=== PATIENT | female | born 1970 | race Caucasian/White ===

== ENCOUNTER 2023-09-01 15:37 | Emergency (ER) | payer OTHER ==
[~2023-09-01] VITALS: Ht 152.4 cm; Wt 86.2 kg
[2023-09-01 15:52] VITALS: BP 112/52; PULSE 131; RESP 18; TEMP 100; O2SAT 97
[2023-09-01] MEDS: NACL 0.9% 1,000 ML IV SCH (16:45)
[2023-09-01] MEDS: ONDANSETRON 4 MG/2 ML VIAL IVP ONE (16:45)
[2023-09-01 16:50] LABS: BASOPHILS % (AUTO) 0.1 % (0.0-2.0); EOSINOPHILS % (AUTO) 0.1 % (0.0-4.0); HEMATOCRIT 36.5 % (36-48); HEMOGLOBIN 12.2 g/dL (12.0-16.0); LYMPHOCYTES # (AUTO) 0.4 K/uL (2.5-16.5); LYMPHOCYTES % (AUTO) 10.8 % (20.5-51.1); MEAN CORPUSCULAR HEMOGLOBIN 29 pg (27-31); MEAN CORPUSCULAR HGB CONC 34 g/dL (33-37); MONOCYTES % (AUTO) 0.9 % (1.7-9.3); NEUTROPHILS # (AUTO) 3.3 K/uL (1.8-7.7); NEUTROPHILS % (AUTO) 88.1 % (42.2-75.2); PLATELET COUNT (AUTO) 145 K/uL (140-450); RED BLOOD CELL COUNT(AUTO) 4.25 MIL/uL (4.20-5.40); RED CELL DISTRIBUTION WIDTH 14.7 % (11.6-13.7); WHITE BLOOD COUNT (AUTO) 3.8 K/uL (4.8-10.8)
[2023-09-01 17:01] LABS: ANION GAP 18.7 (8-16); CALCIUM 9.7 mg/dL (8.5-10.1); CARBON DIOXIDE 22.5 mmol/L (21-32); POTASSIUM 4.2 mmol/L (3.5-5.1)
[2023-09-01 17:02] LABS: BILIRUBIN,URINE NEGATIVE (NEGATIVE); BLOOD, URINE 3+ (NEGATIVE); COLOR,URINE YELLOW (YELLOW); LEUKOCYTE ESTERASE ,URINE 1+ (NEGATIVE); NITRITE, URINE POSITIVE (NEGATIVE); PROTEIN,URINE 2+ (NEGATIVE); UGLUCOSE 3+ (NEGATIVE)
[2023-09-01 17:04] LABS: APPEARANCE,URINE SLIGHTLY CLOUDY (CLEAR)
[2023-09-01 17:06] LABS: BACTERIA,URINE 1+ /HPF (None Seen); MUCUS,URINE None Seen /LPF (None Seen); SQUAMOUS EPITHELIAL CELL,UR 0-3 (FEW) /LPF (0-3 (FEW)); WBC,URINE 0-5 /HPF (0-5)
[2023-09-01 17:08] LABS: FLU A ANTIGEN negative (NEGATIVE); FLU B ANTIGEN negative (NEGATIVE)
[2023-09-01 17:13] LABS: ALBUMIN 3.5 g/dL (3.4-5.0); BILIRUBIN,DIRECT 0.5 mg/dL (0.0-0.3); TOTAL BILIRUBIN 1.3 mg/dL (0.0-1.0); TOTAL PROTEIN, SERUM 7.8 g/dL (6.4-8.2)
[2023-09-01] MEDS: NACL 0.9% 1,000 ML IV ONE (17:40)
[2023-09-01] MEDS ORDERED: CIPR500T4 PO (18:16)
[2023-09-01] MEDS ORDERED: ONDA8TAB87 PO (18:16)
[2023-09-01] MEDS ORDERED: IBUP-2213 PO (18:16)
[2023-09-01 18:30] VITALS: BP 113/60; PULSE 100; RESP 22; TEMP 98.5; O2SAT 93
== END 2023-09-01 18:30 | disposition home or self-care (01) ==
LOC: MED 15:37
DX: N39.0 Urinary tract infection, site not specified (principal); Z20.822 Contact with and (suspected) exposure to COVID-19; E11.9 Type 2 diabetes mellitus without complications; I10 Essential (primary) hypertension; Z86.73 Personal history of transient ischemic attack (TIA), and cerebral infarction without residual deficits; Z90.49 Acquired absence of other specified parts of digestive tract
CPT/HCPCS: 36415; 80048; 80076; 81001; 81025; 83690; 85025; 87086; 87186; 87426; 87804; 96361; 96374; 99283; J2405; J7030

== ENCOUNTER 2023-09-08 00:15 | Inpatient (IN) | payer OTHER ==
[~2023-09-08] VITALS: Ht 152.4 cm; Wt 86.2 kg
[~2023-09-08 00:15] MED LIST: CIPR500T4 PO; IBUP-2213 PO; ONDA8TAB87 PO
[2023-09-08 00:33] VITALS: BP 98/45; PULSE 76; RESP 16; TEMP 96.6; O2SAT 98
[2023-09-08] MEDS ORDERED: DEXTROSE 50% 50 ML SYR IVP ONE (00:46)
[2023-09-08] MEDS: DEXTROSE 50% 50 ML SYR IVP ONE (01:00)
[2023-09-08 01:13] LABS: BASOPHILS % (AUTO) 0.1 % (0.0-2.0); EOSINOPHILS % (AUTO) 0.2 % (0.0-4.0); HEMATOCRIT 37.2 % (36-48); HEMOGLOBIN 12.2 g/dL (12.0-16.0); LYMPHOCYTES # (AUTO) 1.6 K/uL (2.5-16.5); LYMPHOCYTES % (AUTO) 5.9 % (20.5-51.1); MEAN CORPUSCULAR HEMOGLOBIN 28 pg (27-31); MEAN CORPUSCULAR HGB CONC 33 g/dL (33-37); MEAN CORPUSCULAR VOLUME 86.7 fL (80-94); MONOCYTES # (AUTO) 0.9 K/uL (0.8-1.0); MONOCYTES % (AUTO) 3.3 % (1.7-9.3); NEUTROPHILS # (AUTO) 23.8 K/uL (1.8-7.7); NEUTROPHILS % (AUTO) 90.5 % (42.2-75.2); PLATELET COUNT (AUTO) 191 K/uL (140-450); RED BLOOD CELL COUNT(AUTO) 4.29 MIL/uL (4.20-5.40)
[2023-09-08 01:18] LABS: WHITE BLOOD COUNT (AUTO) 26.3 K/uL (4.8-10.8)
[2023-09-08 01:41] LABS: LACTIC ACID 3.5 mmol/L (0.4-2.0)
[2023-09-08 01:45] LABS: FLU A ANTIGEN negative (NEGATIVE); FLU B ANTIGEN NEGATIVE (NEGATIVE)
[2023-09-08 01:50] LABS: APPEARANCE,URINE SL CLOUDY (CLEAR); BILIRUBIN,URINE NEGATIVE (NEGATIVE); BLOOD, URINE 3+ (NEGATIVE); COLOR,URINE YELLOW (YELLOW); LEUKOCYTE ESTERASE ,URINE 3+ (NEGATIVE); NITRITE, URINE NEGATIVE (NEGATIVE); PROTEIN,URINE 2+ (NEGATIVE); UGLUCOSE NEGATIVE (NEGATIVE); UROBILINOGEN,URINE 0.2 EU/dL (0.2 - 1)
[2023-09-08 01:53] LABS: ANION GAP 21.2 (8-16); CALCIUM 8.9 mg/dL (8.5-10.1); CARBON DIOXIDE 17.8 mmol/L (21-32)
[2023-09-08 01:55] LABS: CREATININE 4.8 mg/dL (0.6-1.3)
[2023-09-08] MEDS: NACL 0.9% 2,000 ML IV ONE (01:56)
[2023-09-08 01:57] LABS: ALANINE AMINOTRANSFERASE 16 U/L (12-78); ALBUMIN 2.8 g/dL (3.4-5.0); ALKALINE PHOSPHATASE 165 U/L (50-136); ASPARTATE AMINOTRANSFERASE 27 U/L (15-37); BILIRUBIN,DIRECT 0.2 mg/dL (0.0-0.3); TOTAL BILIRUBIN 0.5 mg/dL (0.0-1.0); TOTAL PROTEIN, SERUM 7.9 g/dL (6.4-8.2)
[2023-09-08 01:59] LABS: MAGNESIUM 1.8 mg/dL (1.8-2.4)
[2023-09-08 02:01] LABS: BACTERIA,URINE >30 (MANY) /HPF (None Seen); MUCUS,URINE 1+ /LPF (None Seen); SQUAMOUS EPITHELIAL CELL,UR 0-3 (FEW) /LPF (0-3 (FEW)); WBC,URINE TOO MANY TO COUNT /HPF (0-5)
[2023-09-08 02:05] LABS: THYROID STIMULATING HORMONE 4.23 uIU/mL (0.34-3.74)
[2023-09-08] MEDS ORDERED: cefTRIAXone 1,000 MG VIAL ONE (02:30)
[2023-09-08] MEDS ORDERED: ACETAMINOPHEN 650 MG/20.3 ML UDC PO PRN (03:25)
[2023-09-08] MEDS: NACL 0.9% 1,000 ML IV ONE (03:47)
[2023-09-08 03:59] LABS: BLOOD GAS BASE EXCESS -10.8 mmol/L (-2.0-2.0); BLOOD GAS HCO3 14.5 mmol/L (22-26); BLOOD GAS PCO2 30.7 mmHg (35-45)
[2023-09-08 04:00] LABS: BLOOD GAS O2 SAT% 96.8 % (92.0-98.5)
[2023-09-08 04:52] LABS: INR 1.06 (0.8-1.2); PARTIAL THROMBOPLASTIN TIME 28.5 secs (22-35.6); PROTHROMBIN TIME 11.1 secs (10.8-13.4)
[2023-09-08] MEDS ORDERED: MEROPENEM 1,000 MG VIAL IV ONE (05:07)
[2023-09-08] MEDS: MEROPENEM 1,000 MG in NACL 0.9% 50 ML IV SCH (05:12)
[2023-09-08 06:47] LABS: BASOPHILS % (AUTO) 0.1 % (0.0-2.0); EOSINOPHILS # (AUTO) 0.1 K/uL (0-0.4); EOSINOPHILS % (AUTO) 0.2 % (0.0-4.0); HEMATOCRIT 30.4 % (36-48); HEMOGLOBIN 10.1 g/dL (12.0-16.0); LYMPHOCYTES # (AUTO) 1.2 K/uL (2.5-16.5); LYMPHOCYTES % (AUTO) 5.8 % (20.5-51.1); MEAN CORPUSCULAR HEMOGLOBIN 29 pg (27-31); MEAN CORPUSCULAR HGB CONC 33 g/dL (33-37); MEAN CORPUSCULAR VOLUME 86.2 fL (80-94); NEUTROPHILS # (AUTO) 18.1 K/uL (1.8-7.7); NEUTROPHILS % (AUTO) 88.9 % (42.2-75.2); PLATELET COUNT (AUTO) 165 K/uL (140-450); RED BLOOD CELL COUNT(AUTO) 3.52 MIL/uL (4.20-5.40); RED CELL DISTRIBUTION WIDTH 14.9 % (11.6-13.7)
[2023-09-08 06:49] LABS: WHITE BLOOD COUNT (AUTO) 20.4 K/uL (4.8-10.8)
[2023-09-08 07:04] LABS: ALBUMIN 1.9 g/dL (3.4-5.0); ANION GAP 14.9 (8-16); CALCIUM 7.3 mg/dL (8.5-10.1); CARBON DIOXIDE 18.6 mmol/L (21-32); POTASSIUM 4.5 mmol/L (3.5-5.1); TOTAL BILIRUBIN 0.3 mg/dL (0.0-1.0); TOTAL PROTEIN, SERUM 5.5 g/dL (6.4-8.2)
[2023-09-08 07:07] LABS: LACTIC ACID 2.1 mmol/L (0.4-2.0)
[2023-09-08 07:08] LABS: CREATININE 4.5 mg/dL (0.6-1.3)
[2023-09-08 16:22] VITALS: PULSE 91; RESP 28; O2SAT 96
[2023-09-08] MEDS ORDERED: NACL 0.9% 1,000 ML IV SCH (16:30)
[2023-09-08 20:00] VITALS: BP 114/54; PULSE 91; PULSE 94; RESP 18; TEMP 97.5; O2SAT 96
[2023-09-08] MEDS: MEDS-TO-BEDS MC SCH (21:00)
[2023-09-08] MEDS: MEROPENEM 500 MG in NACL 0.9% 50 ML IV SCH (22:21)
[2023-09-09] VITALS: BP 110/47; PULSE 90; PULSE 94; RESP 18; TEMP 97.6; O2SAT 96
[2023-09-09] MEDS: DEXT 5% /NACL 0.9% 1,000 ML IV SCH (00:43)
[2023-09-09 04:00] VITALS: BP 116/69; PULSE 90; PULSE 92; RESP 18; TEMP 97.4; O2SAT 95
[2023-09-09 06:50] LABS: BASOPHILS % (AUTO) 0.2 % (0.0-2.0); EOSINOPHILS # (AUTO) 0.1 K/uL (0-0.4); EOSINOPHILS % (AUTO) 0.6 % (0.0-4.0); HEMATOCRIT 33.8 % (36-48); HEMOGLOBIN 11.2 g/dL (12.0-16.0); LYMPHOCYTES # (AUTO) 1.8 K/uL (2.5-16.5); LYMPHOCYTES % (AUTO) 9.2 % (20.5-51.1); MEAN CORPUSCULAR HEMOGLOBIN 28 pg (27-31); MEAN CORPUSCULAR HGB CONC 33 g/dL (33-37); MEAN CORPUSCULAR VOLUME 85.8 fL (80-94); MONOCYTES # (AUTO) 0.8 K/uL (0.8-1.0); NEUTROPHILS # (AUTO) 17.1 K/uL (1.8-7.7); PLATELET COUNT (AUTO) 260 K/uL (140-450); RED BLOOD CELL COUNT(AUTO) 3.95 MIL/uL (4.20-5.40); RED CELL DISTRIBUTION WIDTH 14.8 % (11.6-13.7); WHITE BLOOD COUNT (AUTO) 19.9 K/uL (4.8-10.8)
[2023-09-09 07:15] LABS: ANION GAP 14.9 (8-16); CALCIUM 8.4 mg/dL (8.5-10.1); CARBON DIOXIDE 20.9 mmol/L (21-32); POTASSIUM 3.8 mmol/L (3.5-5.1)
[2023-09-09 08:00] VITALS: BP 111/53; PULSE 80; PULSE 92; PULSE 94; RESP 18; TEMP 97.1; TEMP 97.9; O2SAT 96; O2SAT 99
[2023-09-09 12:00] VITALS: BP 122/53; PULSE 81; PULSE 92; RESP 18; TEMP 97.5; O2SAT 92
[2023-09-09 12:08] LABS: HEPATITIS A ANTIBODY IGM Negative (Negative); HEPATITIS B CORE AB TOTAL Negative (Negative); HEPATITIS B CORE, IGM Negative (Negative); HEPATITIS B SURFACE ANTIBODY Non Reactive (.); HEPATITIS B SURFACE ANTIGEN Negative (Negative); HEPATITIS C VIRUS ANTIBODY Non Reactive (Non Reactive)
[2023-09-09] MEDS ORDERED: CLOP75TA55 PO (14:17)
[2023-09-09] MEDS ORDERED: OMEP20EC11 PO (14:17)
[2023-09-09] MEDS ORDERED: HUM SUBQ (14:17)
[2023-09-09] MEDS ORDERED: FERR325E14 PO (14:17)
[2023-09-09] MEDS ORDERED: PRAV20TA6 PO (14:17)
[2023-09-09] MEDS ORDERED: ASPI-1749 PO (14:17)
[2023-09-09] MEDS ORDERED: PIOG45TA10 PO (14:17)
[2023-09-09] MEDS ORDERED: BLOOD GLUCOSE MONITORING 1 DEV DEV FS PRN (14:20)
[2023-09-09] MEDS: NACL 0.9% 1,000 ML IV SCH (15:49)
[2023-09-09 16:00] VITALS: BP_SYST 108; BP_DIAS 57; BP_DIAS 66; PULSE 81; PULSE 88; RESP 18; TEMP 97.8; O2SAT 98
[2023-09-09] MEDS: BLOOD GLUCOSE MONITORING 1 DEV DEV FS SCH (16:30)
[2023-09-09] MEDS: INSULIN LISPRO SLIDING SCALE 100 UNITS/ML VIAL SUBQ PRN (17:48)
[2023-09-09 20:00] VITALS: BP 128/65; PULSE 105; RESP 18; TEMP 97.7; O2SAT 95
[2023-09-09 20:34] LABS: URINE TOTAL PROTEIN 34.3 mg/dL (0-12)
[2023-09-09 20:35] LABS: URINE TPRO CREAT RATIO 3.1 (0-0.20)
[2023-09-10] VITALS (8 sets, daily range): BP systolic 98–122; BP diastolic 51–57; PULSE 75–98; RESP 18–22; TEMP 97.1–98.3; O2SAT 95–99
[2023-09-10 07:12] LABS: BASOPHILS % (AUTO) 0.2 % (0.0-2.0); EOSINOPHILS # (AUTO) 0.1 K/uL (0-0.4); EOSINOPHILS % (AUTO) 0.7 % (0.0-4.0); HEMATOCRIT 28.2 % (36-48); HEMOGLOBIN 9.4 g/dL (12.0-16.0); LYMPHOCYTES # (AUTO) 2.4 K/uL (2.5-16.5); LYMPHOCYTES % (AUTO) 13.9 % (20.5-51.1); MEAN CORPUSCULAR HEMOGLOBIN 29 pg (27-31); MEAN CORPUSCULAR HGB CONC 33 g/dL (33-37); MEAN CORPUSCULAR VOLUME 86.1 fL (80-94); MONOCYTES # (AUTO) 0.8 K/uL (0.8-1.0); MONOCYTES % (AUTO) 4.4 % (1.7-9.3); NEUTROPHILS % (AUTO) 80.8 % (42.2-75.2); PLATELET COUNT (AUTO) 282 K/uL (140-450); RED BLOOD CELL COUNT(AUTO) 3.28 MIL/uL (4.20-5.40); RED CELL DISTRIBUTION WIDTH 14.5 % (11.6-13.7); WHITE BLOOD COUNT (AUTO) 17.3 K/uL (4.8-10.8)
[2023-09-10 08:08] LABS: ANION GAP 11.6 (8-16); CALCIUM 7.6 mg/dL (8.5-10.1); CARBON DIOXIDE 21.1 mmol/L (21-32); CREATININE 1.8 mg/dL (0.6-1.3); POTASSIUM 3.7 mmol/L (3.5-5.1)
[2023-09-10 19:25] LABS: HEPATITIS A ANTIBODY TOTAL Positive (Negative)
[2023-09-11] VITALS: BP 116/50; PULSE 79; PULSE 80; RESP 20; TEMP 98; O2SAT 95
[2023-09-11 04:00] VITALS: BP 106/54; PULSE 71; PULSE 75; RESP 18; TEMP 97.9; O2SAT 96
[2023-09-11 07:26] LABS: BASOPHILS % (AUTO) 0.3 % (0.0-2.0); EOSINOPHILS # (AUTO) 0.1 K/uL (0-0.4); EOSINOPHILS % (AUTO) 0.7 % (0.0-4.0); HEMOGLOBIN 9.3 g/dL (12.0-16.0); LYMPHOCYTES # (AUTO) 2.8 K/uL (2.5-16.5); LYMPHOCYTES % (AUTO) 19.9 % (20.5-51.1); MEAN CORPUSCULAR HEMOGLOBIN 29 pg (27-31); MEAN CORPUSCULAR HGB CONC 33 g/dL (33-37); MEAN CORPUSCULAR VOLUME 86.1 fL (80-94); MONOCYTES # (AUTO) 0.5 K/uL (0.8-1.0); MONOCYTES % (AUTO) 3.8 % (1.7-9.3); NEUTROPHILS # (AUTO) 10.5 K/uL (1.8-7.7); NEUTROPHILS % (AUTO) 75.3 % (42.2-75.2); PLATELET COUNT (AUTO) 339 K/uL (140-450); RED BLOOD CELL COUNT(AUTO) 3.26 MIL/uL (4.20-5.40); RED CELL DISTRIBUTION WIDTH 14.5 % (11.6-13.7)
[2023-09-11 07:32] LABS: ANION GAP 11.5 (8-16); CALCIUM 7.4 mg/dL (8.5-10.1); CARBON DIOXIDE 24.2 mmol/L (21-32); CREATININE 1.3 mg/dL (0.6-1.3); POTASSIUM 3.7 mmol/L (3.5-5.1)
[2023-09-11 08:00] VITALS: BP 104/56; PULSE 74; PULSE 86; PULSE 88; RESP 18; RESP 22; TEMP 97.6; TEMP 98.3; O2SAT 96; O2SAT 97
[2023-09-11 12:00] VITALS: BP 115/51; PULSE 70; PULSE 75; RESP 18; TEMP 97; O2SAT 96
[2023-09-11 14:22] VITALS: BP 115/51; PULSE 70; RESP 18; TEMP 97
== END 2023-09-11 14:45 | disposition home or self-care (01) | DRG 871 ==
LOC: MED 00:15 → UNDOADMIN 03:18 → MTU 03:18
PROVIDERS: ADMIT Hospitalist; ATTEND Hospitalist
DX: A41.9 Sepsis, unspecified organism (principal); E43 Unspecified severe protein-calorie malnutrition; N17.9 Acute kidney failure, unspecified; E87.1 Hypo-osmolality and hyponatremia; N30.00 Acute cystitis without hematuria; Z20.822 Contact with and (suspected) exposure to COVID-19; K21.9 Gastro-esophageal reflux disease without esophagitis; I10 Essential (primary) hypertension; E11.649 Type 2 diabetes mellitus with hypoglycemia without coma; Z79.899 Other long term (current) drug therapy; Z86.73 Personal history of transient ischemic attack (TIA), and cerebral infarction without residual deficits; Z68.37 Body mass index [BMI] 37.0-37.9, adult
CPT/HCPCS: 36415; 36600; 70450; 71045; 76770; 80048; 80053; 80076; 81001; 82140; 82150; 82570; 82803; 82948; 83605; 83690; 83735; 84100; 84443; 84484; 84703; 85025; 85379; 85384; 85610; 85730; 86704; 86706; 86708; 86709; 86803; 86886; 86900; 86901; 87040; 87086; 87340; 93005; 96374; 96375; 99291; J0696; J1644; J1815; J2185; Q0092

== ENCOUNTER 2023-12-14 11:48 | Observation (INO) | payer OTHER ==
[~2023-12-14] VITALS: Ht 162.6 cm; Wt 73.0 kg
[~2023-12-14 11:48] MED LIST changes: +ASPI-1749 PO; -CIPR500T4 PO; +CLOP75TA55 PO; +FERR325E14 PO; +HUM SUBQ; +OMEP20EC11 PO; +PIOG45TA10 PO; +PRAV20TA6 PO
[2023-12-14 11:53] VITALS: BP 102/66; PULSE 78; RESP 18; TEMP 98.1; O2SAT 97
[2023-12-14 13:05] LABS: BILIRUBIN,URINE NEGATIVE (NEGATIVE); BLOOD, URINE 1+ (NEGATIVE); COLOR,URINE YELLOW (YELLOW); LEUKOCYTE ESTERASE ,URINE 2+ (NEGATIVE); NITRITE, URINE NEGATIVE (NEGATIVE); PROTEIN,URINE 1+ (NEGATIVE); UGLUCOSE NEGATIVE (NEGATIVE); UROBILINOGEN,URINE 0.2 EU/dL (0.2 - 1)
[2023-12-14 13:08] LABS: APPEARANCE,URINE HAZY (CLEAR)
[2023-12-14 13:10] LABS: WBC,URINE 60-80 /HPF (0-5)
[2023-12-14 13:12] LABS: BACTERIA,URINE 1+ /HPF (None Seen); RBC,URINE 0-5 /HPF (0-5); SQUAMOUS EPITHELIAL CELL,UR 4-10 (MOD) /LPF (0-3 (FEW))
[2023-12-14 13:13] LABS: YEAST,URINE Few /HPF (None Seen)
[2023-12-14] MEDS: DEXTROSE 10% 250 ML IV SCH (13:22)
[2023-12-14] MEDS ORDERED: cefTRIAXone 1,000 MG VIAL ONE (13:32)
[2023-12-14] MEDS ORDERED: ACETAMINOPHEN 325 MG TAB PO PRN (13:40)
[2023-12-14] MEDS ORDERED: ONDANSETRON 4 MG/2 ML VIAL IVP PRN (13:40)
[2023-12-14] MEDS ORDERED: MAGNESIUM OXIDE 400 MG TAB PO PRN (13:40)
[2023-12-14] MEDS ORDERED: HYDROcodone/APAP 5/325 MG 1 TAB TAB PO PRN (13:40)
[2023-12-14] MEDS ORDERED: MORPHINE SULFATE 4 MG/ML SYR IVP PRN (13:40)
[2023-12-14] MEDS ORDERED: POTASSIUM CHLORIDE 10 MEQ TABER PO PRN (13:40)
[2023-12-14] MEDS ORDERED: KCL 20 MEQ IN 100 mL PREMIX 200 ML IV PRN (13:40)
[2023-12-14 13:43] LABS: BASOPHILS % (AUTO) 0.2 % (0.0-2.0); EOSINOPHILS % (AUTO) 0.3 % (0.0-4.0); HEMATOCRIT 35.2 % (36-48); HEMOGLOBIN 11.4 g/dL (12.0-16.0); LYMPHOCYTES # (AUTO) 2.2 K/uL (2.5-16.5); LYMPHOCYTES % (AUTO) 15.2 % (20.5-51.1); MEAN CORPUSCULAR HEMOGLOBIN 29 pg (27-31); MEAN CORPUSCULAR HGB CONC 32 g/dL (33-37); MEAN CORPUSCULAR VOLUME 88.6 fL (80-94); MONOCYTES # (AUTO) 0.7 K/uL (0.8-1.0); MONOCYTES % (AUTO) 4.9 % (1.7-9.3); NEUTROPHILS # (AUTO) 11.3 K/uL (1.8-7.7); NEUTROPHILS % (AUTO) 79.4 % (42.2-75.2); PLATELET COUNT (AUTO) 204 K/uL (140-450); RED BLOOD CELL COUNT(AUTO) 3.98 MIL/uL (4.20-5.40); RED CELL DISTRIBUTION WIDTH 16.1 % (11.6-13.7); WHITE BLOOD COUNT (AUTO) 14.3 K/uL (4.8-10.8)
[2023-12-14] MEDS ORDERED: LISI10TA30 PO (13:53)
[2023-12-14] MEDS ORDERED: METF1TAB5 PO (13:53)
[2023-12-14 14:12] LABS: LACTIC ACID 1.1 mmol/L (0.4-2.0)
[2023-12-14 14:13] LABS: CALCIUM 9.3 mg/dL (8.5-10.1); CREATININE 3.2 mg/dL (0.6-1.3); POTASSIUM 3.6 mmol/L (3.5-5.1)
[2023-12-14 14:21] LABS: ALANINE AMINOTRANSFERASE 9 U/L (12-78); ALKALINE PHOSPHATASE 87 U/L (50-136); ASPARTATE AMINOTRANSFERASE 14 U/L (15-37); BILIRUBIN,DIRECT 0.1 mg/dL (0.0-0.3); TOTAL BILIRUBIN 0.5 mg/dL (0.0-1.0); TOTAL PROTEIN, SERUM 7.8 g/dL (6.4-8.2)
[2023-12-14 14:25] LABS: ANION GAP 12.8 (8-16); CARBON DIOXIDE 28.8 mmol/L (21-32)
[2023-12-14] MEDS ORDERED: DEXTROSE 50% 50 ML SYR IVP PRN (15:50)
[2023-12-14 16:00] VITALS: BP 100/50; PULSE 85; PULSE 86; PULSE 92; RESP 16; RESP 18; TEMP 97.2; O2SAT 97; O2SAT 98
[2023-12-14] MEDS: DEXT 5% /NACL 0.9% 1,000 ML IV SCH (17:12)
[2023-12-14] MEDS: BLOOD GLUCOSE MONITORING 1 DEV DEV FS SCH (17:16)
[2023-12-14 19:52] VITALS: PULSE 96
[2023-12-14 19:53] VITALS: BP 105/58; PULSE 96; RESP 18; TEMP 97.5; O2SAT 96
[2023-12-14 20:03] VITALS: PULSE 94
[2023-12-14] MEDS: INSULIN LISPRO SLIDING SCALE 100 UNITS/ML VIAL SUBQ PRN (21:23)
[2023-12-15 00:02] VITALS: PULSE 91
[2023-12-15 00:04] VITALS: BP 112/64; PULSE 84; RESP 19; TEMP 97.5; O2SAT 93
[2023-12-15 04:00] VITALS: BP 111/58; PULSE 87; RESP 19; TEMP 97.8; O2SAT 93
[2023-12-15 04:06] VITALS: PULSE 91
[2023-12-15 07:27] LABS: BASOPHILS % (AUTO) 0.1 % (0.0-2.0); EOSINOPHILS # (AUTO) 0.1 K/uL (0-0.4); EOSINOPHILS % (AUTO) 1.2 % (0.0-4.0); HEMATOCRIT 31.6 % (36-48); HEMOGLOBIN 10.4 g/dL (12.0-16.0); LYMPHOCYTES # (AUTO) 2.7 K/uL (2.5-16.5); LYMPHOCYTES % (AUTO) 28.3 % (20.5-51.1); MEAN CORPUSCULAR HEMOGLOBIN 29 pg (27-31); MEAN CORPUSCULAR HGB CONC 33 g/dL (33-37); MONOCYTES # (AUTO) 0.7 K/uL (0.8-1.0); MONOCYTES % (AUTO) 7.7 % (1.7-9.3); NEUTROPHILS # (AUTO) 5.9 K/uL (1.8-7.7); NEUTROPHILS % (AUTO) 62.7 % (42.2-75.2); PLATELET COUNT (AUTO) 218 K/uL (140-450); RED BLOOD CELL COUNT(AUTO) 3.63 MIL/uL (4.20-5.40); RED CELL DISTRIBUTION WIDTH 15.5 % (11.6-13.7); WHITE BLOOD COUNT (AUTO) 9.5 K/uL (4.8-10.8)
[2023-12-15 07:41] LABS: ANION GAP 11.7 (8-16); CALCIUM 8.8 mg/dL (8.5-10.1); CARBON DIOXIDE 28.1 mmol/L (21-32); CREATININE 1.3 mg/dL (0.6-1.3); POTASSIUM 3.8 mmol/L (3.5-5.1)
[2023-12-15] MEDS ORDERED: NON-FORMULARY ITEM (Omeprazole* (Prilosec*) 20 MG) PO SCH (09:00)
[2023-12-15] MEDS: PANTOPRAZOLE 40 MG TABEC PO SCH (09:13)
[2023-12-15] MEDS: ASPIRIN 81 MG TAB.CHEW PO SCH (09:13)
[2023-12-15] MEDS: CLOPIDOGREL 75 MG TAB PO SCH (09:13)
[2023-12-15] MEDS: MEDS-TO-BEDS MC SCH (09:19)
[2023-12-15 11:18] VITALS: O2SAT 97
[2023-12-15] MEDS ORDERED: CEFD300C3 PO (12:03)
== END 2023-12-15 15:35 | disposition home or self-care (01) ==
LOC: MED 11:48 → MTU 13:41
PROVIDERS: ADMIT Student in an Organized Health Care Education/Training Program; ATTEND Student in an Organized Health Care Education/Training Program
DX: E11.649 Type 2 diabetes mellitus with hypoglycemia without coma (principal); I10 Essential (primary) hypertension; E86.1 Hypovolemia; N39.0 Urinary tract infection, site not specified; K21.9 Gastro-esophageal reflux disease without esophagitis; Z79.82 Long term (current) use of aspirin; Z79.899 Other long term (current) drug therapy; Z86.73 Personal history of transient ischemic attack (TIA), and cerebral infarction without residual deficits
CPT/HCPCS: 36415; 71045; 80048; 80076; 81001; 82948; 83605; 83735; 84484; 85025; 87040; 87081; 87086; 87186; 93005; 94760; 96361; 96365; 96372; 99285; G0378; J0696; J1644; J1815